=== PATIENT | female | born 1975 | race African-American/Black ===

== ENCOUNTER 2023-09-07 13:58 | Emergency (ER) | payer OTHER ==
[~2023-09-07] VITALS: Ht 162.6 cm; Wt 63.5 kg
[2023-09-07 14:05] VITALS: BP_SYST 169; PULSE 122; RESP 22; TEMP 98.3; O2SAT 98
[2023-09-07 15:11] LABS: HEMOGLOBIN 8.5 g/dL (12.0-16.0)
[2023-09-07 15:18] LABS: BASOPHILS % (AUTO) 0.4 % (0.0-2.0); EOSINOPHILS % (AUTO) 0.1 % (0.0-4.0); HEMATOCRIT 27.6 % (36-48); LYMPHOCYTES # (AUTO) 0.4 K/uL (1.0-5.5); LYMPHOCYTES % (AUTO) 6.7 % (20.5-51.5); MEAN CORPUSCULAR HEMOGLOBIN 23 pg (27-31); MEAN CORPUSCULAR HGB CONC 31 % (32-36); MEAN CORPUSCULAR VOLUME 75 fL (79.0-98.0); MONOCYTES # (AUTO) 0.3 K/uL (0.0-1.0); NEUTROPHILS # (AUTO) 5.7 K/uL (1.8-7.7); NEUTROPHILS % (AUTO) 87.8 % (40.0-70.0); PLATELET COUNT (AUTO) 382 K/uL (130-430); RED CELL DISTRIBUTION WIDTH 32.6 % (9.0-15.0); WHITE BLOOD COUNT (AUTO) 6.5 K/uL (4.8-10.8)
[2023-09-07 15:24] LABS: INR 1.1 (0.8-1.2); PROTHROMBIN TIME 11.1 SECS (9.5-12.5)
[2023-09-07 15:29] LABS: ALANINE AMINOTRANSFERASE 19 U/L (12-78); ALBUMIN 4.1 g/dL (3.4-4.8); ANION GAP 11 (5-15); ASPARTATE AMINOTRANSFERASE 20 U/L (10-37); CALCIUM 9.5 mg/dL (8.4-11.0); CARBON DIOXIDE 25 mmol/L (23-29); CHLORIDE 104 mmol/L (98-107); CREATININE 0.86 mg/dL (0.55-1.30); GFR AFRICAN AMERICAN 91 mL/min (>90); GLUCOSE 138 mg/dL (74-106); POTASSIUM 3.4 mmol/L (3.5-5.1); SODIUM SERUM 140 mmol/L (136-145); TOTAL BILIRUBIN 0.3 mg/dL (0.0-1.0); TOTAL PROTEIN, SERUM 8.3 g/dL (6.4-8.3); UREA NITROGEN, BLOOD 6 mg/dL (8-21)
[2023-09-07 15:31] LABS: GFR NON AFRICAN-AMERICAN 76 mL/min (>90)
[2023-09-07 15:37] LABS: AMYLASE 54 U/L (0-100); BILIRUBIN,DIRECT 0.1 mg/dL (0.0-0.3); CREATINE KINASE, TOTAL 72 U/L (26-192); FREE T4 (FREE THYROXINE) 0.9 ng/dl (0.8-1.5); LIPASE 29 U/L (16-77); THYROID STIMULATING HORMONE 0.25 uIu/mL (0.36-3.74)
[2023-09-07 16:06] LABS: BILIRUBIN,URINE NEGATIVE (NEGATIVE); BLOOD, URINE 1+ (NEGATIVE); CLARITY/URINE CLEAR (CLEAR); COLOR,URINE YELLOW (YELLOW); GLUCOSE,URINE NEGATIVE (NEGATIVE); KETONES,URINE NEGATIVE (NEGATIVE); LEUKOCYTE ESTERASE ,URINE TRACE (NEGATIVE); NITRITE, URINE NEGATIVE (NEGATIVE); PROTEIN URINE NEGATIVE (NEGATIVE); UROBILINOGEN,URINE 0.2 (0.2-1.0)
[2023-09-07 16:25] LABS: ACETONE, SERUM NEGATIVE (NEGATIVE)
[2023-09-07 16:38] VITALS: BP_SYST 160; PULSE 99; O2SAT 98
[2023-09-07 16:46] LABS: BACTERIA,URINE FEW /HPF (None Seen)
[2023-09-07 16:47] LABS: MUCUS,URINE None Seen /LPF (None Seen)
[2023-09-07 17:07] LABS: ANISOCYTOSIS 3+; HYPOCHROMASIA 2+; TARGET CELLS MODERATE
[2023-09-07 17:08] LABS: OVALOCYTES MODERATE; TEAR DROP CELLS FEW
== END 2023-09-07 16:38 | disposition home or self-care (01) ==
LOC: SED 13:58
DX: D64.9 Anemia, unspecified (principal); R53.1 Weakness; R42 Dizziness and giddiness; R00.0 Tachycardia, unspecified
CPT/HCPCS: 36415; 71045; 80048; 80076; 81000; 81001; 81015; 81025; 82009; 82150; 82550; 82948; 83605; 83690; 84439; 84443; 85025; 85610; 85730; 86886; 86900; 86901; 87086; 93005; 99285